=== PATIENT | female | born 1965 | race Caucasian/White ===

== ENCOUNTER 2024-01-07 08:07 | Emergency (ER) | payer OTHER ==
[~2024-01-07] VITALS: Ht 154.9 cm; Wt 73.5 kg
[2024-01-07 08:12] VITALS: BP 130/67; PULSE 62; RESP 18; TEMP 97.4; O2SAT 98
[2024-01-07] MEDS: ACETAMINOPHEN EXTRA STRENGTH 500 MG TAB PO ONE (09:11)
[2024-01-07] MEDS: KETOROLAC 30 MG/ML VIAL IM ONE (09:12)
[2024-01-07 10:28] VITALS: BP 128/66; PULSE 63; RESP 15; TEMP 98.2; O2SAT 98
== END 2024-01-07 10:30 | disposition home or self-care (01) ==
LOC: MED 08:07
DX: S92.421A Displaced fracture of distal phalanx of right great toe, initial encounter for closed fracture (principal); S92.531A Displaced fracture of distal phalanx of right lesser toe(s), initial encounter for closed fracture; W20.8XXA Other cause of strike by thrown, projected or falling object, initial encounter; Y93.89 Activity, other specified; Y92.89 Other specified places as the place of occurrence of the external cause; Y99.8 Other external cause status
CPT/HCPCS: 29515; 73630; 96372; 99283; J1885; Q0092

== ENCOUNTER 2024-04-18 20:50 | Emergency (ER) | payer OTHER ==
[~2024-04-18] VITALS: Ht 152.4 cm; Wt 68.9 kg
[2024-04-18 21:08] VITALS: BP 115/50; PULSE 69; RESP 18; TEMP 97.5; O2SAT 97
[2024-04-18 21:59] LABS: APPEARANCE,URINE CLEAR (CLEAR); BILIRUBIN,URINE NEGATIVE (NEGATIVE); BLOOD, URINE NEGATIVE (NEGATIVE); COLOR,URINE YELLOW (YELLOW); LEUKOCYTE ESTERASE ,URINE NEGATIVE (NEGATIVE); NITRITE, URINE NEGATIVE (NEGATIVE); PROTEIN,URINE NEGATIVE (NEGATIVE); UGLUCOSE NEGATIVE (NEGATIVE)
[2024-04-18] MEDS: NACL 0.9% 1,000 ML IV ONE (22:10)
[2024-04-18] MEDS: MORPHINE SULFATE 4 MG/ML SYR IVP ONE (22:15)
[2024-04-18 22:25] LABS: BASOPHILS % (AUTO) 0.3 % (0.0-2.0); EOSINOPHILS # (AUTO) 0.1 K/uL (0-0.4); HEMATOCRIT 39.2 % (36-48); HEMOGLOBIN 13.3 g/dL (12.0-16.0); LYMPHOCYTES # (AUTO) 0.8 K/uL (2.5-16.5); MEAN CORPUSCULAR HEMOGLOBIN 30 pg (27-31); MEAN CORPUSCULAR HGB CONC 34 g/dL (33-37); MONOCYTES # (AUTO) 0.5 K/uL (0.8-1.0); MONOCYTES % (AUTO) 5.6 % (1.7-9.3); NEUTROPHILS % (AUTO) 83.1 % (42.2-75.2); PLATELET COUNT (AUTO) 312 K/uL (140-450); RED BLOOD CELL COUNT(AUTO) 4.45 MIL/uL (4.20-5.40); RED CELL DISTRIBUTION WIDTH 13.5 % (11.6-13.7); WHITE BLOOD COUNT (AUTO) 8.4 K/uL (4.8-10.8)
[2024-04-18 22:50] LABS: ANION GAP 12.7 (8-16); CALCIUM 8.8 mg/dL (8.5-10.1); CARBON DIOXIDE 28.1 mmol/L (21-32); CREATININE 0.6 mg/dL (0.6-1.3); POTASSIUM 3.8 mmol/L (3.5-5.1)
[2024-04-18 22:56] LABS: ALBUMIN 3.6 g/dL (3.4-5.0); BILIRUBIN,DIRECT 0.6 mg/dL (0.0-0.3); TOTAL BILIRUBIN 1.1 mg/dL (0.0-1.0); TOTAL PROTEIN, SERUM 7.7 g/dL (6.4-8.2)
[2024-04-18] MEDS ORDERED: ESOM40EC PO (23:02)
[2024-04-18 23:08] VITALS: BP 123/68; PULSE 78; RESP 17; TEMP 98; O2SAT 98
[2024-04-18] MEDS: FAMOTIDINE 20 MG/2 ML VIAL IVP ONE (23:22)
== END 2024-04-18 23:08 | disposition home or self-care (01) ==
LOC: MED 20:50
DX: K21.9 Gastro-esophageal reflux disease without esophagitis (principal); Z79.899 Other long term (current) drug therapy
CPT/HCPCS: 36415; 76705; 80048; 80076; 81003; 82150; 83690; 85025; 96361; 96374; 96375; 99285; J2270; J3490; Q0092

== ENCOUNTER 2024-05-05 19:04 | Inpatient (IN) | payer OTHER ==
[~2024-05-05] VITALS: Ht 157.5 cm; Wt 68.9 kg
[~2024-05-05 19:04] MED LIST: ESOM40EC PO
[2024-05-05 19:40] VITALS: BP 116/55; PULSE 65; RESP 20; TEMP 99; O2SAT 97
[2024-05-05 21:09] LABS: BASOPHILS % (AUTO) 0.2 % (0.0-2.0); EOSINOPHILS % (AUTO) 0.5 % (0.0-4.0); HEMATOCRIT 37.3 % (36-48); HEMOGLOBIN 12.7 g/dL (12.0-16.0); LYMPHOCYTES # (AUTO) 1.4 K/uL (2.5-16.5); LYMPHOCYTES % (AUTO) 14.7 % (20.5-51.1); MEAN CORPUSCULAR HEMOGLOBIN 30 pg (27-31); MEAN CORPUSCULAR HGB CONC 34 g/dL (33-37); MONOCYTES # (AUTO) 0.5 K/uL (0.8-1.0); MONOCYTES % (AUTO) 5.3 % (1.7-9.3); NEUTROPHILS # (AUTO) 7.6 K/uL (1.8-7.7); NEUTROPHILS % (AUTO) 79.3 % (42.2-75.2); PLATELET COUNT (AUTO) 312 K/uL (140-450); RED CELL DISTRIBUTION WIDTH 13.5 % (11.6-13.7); WHITE BLOOD COUNT (AUTO) 9.5 K/uL (4.8-10.8)
[2024-05-05 21:32] LABS: ALBUMIN 3.7 g/dL (3.4-5.0); ANION GAP 10.3 (8-16); CALCIUM 9.2 mg/dL (8.5-10.1); CARBON DIOXIDE 30.8 mmol/L (21-32); CREATININE 0.6 mg/dL (0.6-1.3); POTASSIUM 4.1 mmol/L (3.5-5.1); TOTAL BILIRUBIN 1.4 mg/dL (0.0-1.0); TOTAL PROTEIN, SERUM 7.4 g/dL (6.4-8.2)
[2024-05-05 21:48] LABS: APPEARANCE,URINE CLEAR (CLEAR); BILIRUBIN,URINE 1+ (NEGATIVE); BLOOD, URINE NEGATIVE (NEGATIVE); COLOR,URINE YELLOW (YELLOW); LEUKOCYTE ESTERASE ,URINE NEGATIVE (NEGATIVE); NITRITE, URINE NEGATIVE (NEGATIVE); PH,URINE 7.5 (5.0-9.0); PROTEIN,URINE NEGATIVE (NEGATIVE); UGLUCOSE NEGATIVE (NEGATIVE); UROBILINOGEN,URINE >=8.0 EU/dL (0.2 - 1)
[2024-05-05 22:06] LABS: ICTOTEST NEGATIVE (NEGATIVE)
[2024-05-05] MEDS: MORPHINE SULFATE 4 MG/ML SYR IVP ONE (23:35)
[2024-05-06] MEDS ORDERED: ONDANSETRON 4 MG/2 ML VIAL IVP PRN (02:45)
[2024-05-06 02:54] VITALS: O2SAT 97
[2024-05-06] MEDS: NACL 0.9% 1,000 ML IV SCH (03:29)
[2024-05-06] MEDS: MORPHINE SULFATE 2 MG/ML SYR IVP PRN (06:27)
[2024-05-06 09:42] VITALS: PULSE 56; RESP 18; O2SAT 98
[2024-05-06] MEDS: MEDS-TO-BEDS MC SCH (09:57)
[2024-05-06 10:00] VITALS: PULSE 56; RESP 18; O2SAT 98
[2024-05-06 12:00] VITALS: BP 135/65; PULSE 59; PULSE 66; RESP 18; TEMP 98.2; O2SAT 96
[2024-05-06] MEDS: metroNIDAZOLE 500 MG TAB PO SCH (12:05)
[2024-05-06 16:00] VITALS: BP 116/51; PULSE 52; PULSE 55; RESP 18; TEMP 97.7; O2SAT 97
[2024-05-06 20:00] VITALS: BP 124/49; PULSE 61; RESP 19; TEMP 97.5; O2SAT 96
[2024-05-06] MEDS: ACETAMINOPHEN 325 MG TAB PO PRN (21:58)
[2024-05-07] VITALS (10 sets, daily range): BP systolic 108–125; BP diastolic 39–71; PULSE 51–83; RESP 18; TEMP 97.3–98.1; O2SAT 95–98
[2024-05-07 05:55] LABS: BASOPHILS % (AUTO) 0.4 % (0.0-2.0); EOSINOPHILS # (AUTO) 0.1 K/uL (0-0.4); EOSINOPHILS % (AUTO) 2.2 % (0.0-4.0); HEMATOCRIT 36.5 % (36-48); HEMOGLOBIN 12.9 g/dL (12.0-16.0); LYMPHOCYTES # (AUTO) 1.7 K/uL (2.5-16.5); LYMPHOCYTES % (AUTO) 38.9 % (20.5-51.1); MEAN CORPUSCULAR HEMOGLOBIN 31 pg (27-31); MEAN CORPUSCULAR HGB CONC 35 g/dL (33-37); MONOCYTES # (AUTO) 0.3 K/uL (0.8-1.0); MONOCYTES % (AUTO) 6.7 % (1.7-9.3); NEUTROPHILS # (AUTO) 2.2 K/uL (1.8-7.7); NEUTROPHILS % (AUTO) 51.8 % (42.2-75.2); PLATELET COUNT (AUTO) 269 K/uL (140-450); RED BLOOD CELL COUNT(AUTO) 4.19 MIL/uL (4.20-5.40); RED CELL DISTRIBUTION WIDTH 13.3 % (11.6-13.7); WHITE BLOOD COUNT (AUTO) 4.3 K/uL (4.8-10.8)
[2024-05-07 07:02] LABS: ANION GAP 8.9 (8-16); CALCIUM 8.7 mg/dL (8.5-10.1); CARBON DIOXIDE 29.5 mmol/L (21-32); CREATININE 0.4 mg/dL (0.6-1.3); MAGNESIUM 1.7 mg/dL (1.8-2.4); POTASSIUM 3.4 mmol/L (3.5-5.1); TOTAL BILIRUBIN 0.8 mg/dL (0.0-1.0); TOTAL PROTEIN, SERUM 6.6 g/dL (6.4-8.2)
[2024-05-07] MEDS: MIDAZOLAM 2 MG/2 ML VIAL ONE (09:28)
[2024-05-07] MEDS: PROPOFOL 200 MG/20 ML VIAL IV ONE (10:09)
[2024-05-07] MEDS: METOCLOPRAMIDE 10 MG/2 ML INJ VIAL ONE (10:09)
[2024-05-07] MEDS: SUCCINYLCHOLINE CHLORIDE 200 MG/10 ML VIAL IVP ONE (10:09)
[2024-05-07] MEDS: ONDANSETRON 4 MG/2 ML VIAL ONE (10:09)
[2024-05-07] MEDS ORDERED: SEVOFLURANE 250 ML BTL INH ONE (10:30)
[2024-05-07] MEDS: NACL 0.9% 1,000 ML IV SCH (12:40)
[2024-05-07] MEDS ORDERED: ONDANSETRON 4 MG/2 ML VIAL IVP PRN (12:40)
[2024-05-07] MEDS: ursodioL 300 MG CAP PO SCH (17:00)
[2024-05-07] MEDS: MAG SULF 2000 MG/WATER PREMIX 50 ML IV ONE ×2 (23:19→23:30)
[2024-05-07] MEDS: POTASSIUM CHLORIDE 10 MEQ TABER PO ONE ×2 (23:20→23:30)
[2024-05-08] VITALS: BP 128/45; PULSE 64; PULSE 66; RESP 18; TEMP 97.7; O2SAT 96
[2024-05-08 04:00] VITALS: BP 108/50; PULSE 56; PULSE 60; PULSE 87; RESP 18; TEMP 97.6; O2SAT 98
[2024-05-08 08:00] VITALS: BP 108/50; PULSE 53; PULSE 66; RESP 17; RESP 18; TEMP 98.2; O2SAT 95
[2024-05-08 12:00] VITALS: BP 91/44; PULSE 57; RESP 18; TEMP 97; O2SAT 97
[2024-05-08] MEDS ORDERED: URSO250T2 PO (14:09)
[2024-05-08] MEDS ORDERED: ACET500T99 PO (14:09)
[2024-05-08 15:26] VITALS: BP 91/44; PULSE 66; RESP 20; TEMP 97
[2024-05-08 16:00] VITALS: BP 94/42; PULSE 51; PULSE 62; RESP 18; TEMP 97.3; O2SAT 96
== END 2024-05-08 17:40 | disposition home or self-care (01) ==
LOC: MED 19:04 → MTU 05-06 02:49
PROVIDERS: ADMIT Hospitalist; ATTEND Hospitalist
PROC: 0FC98ZZ Extirpation of Matter from Common Bile Duct, Via Natural or Artificial Opening Endoscopic (ICD-10-PCS; 2024-05-07)
PROC: 0F798ZZ Dilation of Common Bile Duct, Via Natural or Artificial Opening Endoscopic (ICD-10-PCS; 2024-05-07)
PROC: BF101ZZ Fluoroscopy of Bile Ducts using Low Osmolar Contrast (ICD-10-PCS; principal; 2024-05-07 10:00)
DX: K80.50 Calculus of bile duct without cholangitis or cholecystitis without obstruction (principal); E11.9 Type 2 diabetes mellitus without complications; I10 Essential (primary) hypertension; E78.5 Hyperlipidemia, unspecified; K21.9 Gastro-esophageal reflux disease without esophagitis; Z90.49 Acquired absence of other specified parts of digestive tract; Z79.899 Other long term (current) drug therapy
CPT/HCPCS: 36415; 71045; 74330; 77003; 80053; 81003; 83690; 83735; 85025; 87081; 93005; 96374; 99285; C1713; C1773; J0330; J0696; J2250; J2270; J2405; J2704; J2765; J3475; J7060; Q0092; Q9967